=== PATIENT | female | born 1945 | race Caucasian/White ===

== ENCOUNTER → 2018-03-20 | Outpatient (CLI) | payer MEDICARE, OTHER ==
--- NOTE | 2018-03-20 14:42 | BD ---
EXAMINATION TYPE: MG DEXA axial skeleton. DATE OF EXAM: 03/20/2018 CLINICAL HISTORY: M85.9 Disorder of bone Height: 61 Weight: 148 FRAX RISK QUESTIONS: Alcohol (3 or more units per day): no Family History (Parent hip fracture): no Glucocorticoids (More than 3mos): no (Ex: prednisone, prednisolone, methylprednisolone, dexamethasone, and hydrocortisone). History of Fracture in Adulthood: no Secondary Osteoporosis: 1. Type 1 Diabetes: no 2. Hyperthyroidism: no 3. Menopause before 45: no 4. Malnutrition: no 5. Chronic liver disease: no Rheumatoid Arthritis: no Current Tobacco Use: no RISK FACTORS HISTORY OF: Surgery to Hip(right): yes When: replacement about 3 years ago Family History of Osteoporosis: sister is on osteoporosis meds Active: yes Diet low in dairy products/other sources of calcium: no Postmenopausal woman: yes Take estrogen and/or progesterone medications: not now How long: started age [age]..stopped about 2-3 years Lost more than 2 inches in height since high school: no Frequent falls: no Poor Health: no Hyperparathyroidism: no Adrenal Insufficiency: no MEDICATIONS: Prednisone or other steroids: no Thyroid Medications: yes Which medication: generic brand How Long: about 10 years Osteoporosis Medications: no Additional Medications: blood pressure meds; fish oil prescription Additional History: right hip replaced, hypothyroid EXAM MEASUREMENTS: Bone mineral densitometry was performed using the [employer] System. Bone mineral density as measured about the Lumbar spine is: ----- L1-L4(G/cm2): 1.400 T Score Values are as follows: ----- L2: 1.3 ----- L3: 2.0 ----- L4: 3.3 ----- L1-L4: 1.8 Bone mineral density has: Decreased -3.8% since study of: 01/01/2015 Bone mineral density about the R hip NOT measured due to hip replacement sice last bone density scan Bone mineral density about the L hip (g/cm2): 0.903 T Score values are as follows: -----L Neck: -1.0 -----L Total: 0.3 Bone mineral density has: Decreased -3.1% since study of: 01/01/2015 IMPRESSION: No evidence for osteoporosis or osteopenia. NOTE: T-SCORE=SD OF THE YOUNG ADULT MEAN.
--- NOTE | 2018-03-21 08:38 | MM ---
Reason for exam: screening (asymptomatic). Last mammogram was performed 2 years and 2 months ago. History: Patient is postmenopausal. Benign MG stereo VAD BX RT of the right breast, September 30, 2014. Took estrogen for 19 years beginning at age 50. Physical Findings: A clinical breast exam by your physician is recommended on an annual basis and results should be correlated with mammographic findings. MG Screening Mammo w CAD Bilateral CC and MLO view(s) were taken. Prior study comparison: January 22, 2016, bilateral MG 3d diag mammo w/cad RADHA. September 24, 2014, right breast MG work up mamm w CAD RT. There are scattered fibroglandular densities. Benign calcifications bilaterally. Previous mammotome biopsy in the right breast. No significant changes when compared with prior studies. ASSESSMENT: Benign, BI-RAD 2 RECOMMENDATION: Routine screening mammogram of both breasts in 1 year.
== END | disposition home or self-care (01) ==
LOC: RADMAMWWP 12:36
PROVIDERS: ATTEND Internal Medicine
DX: Z12.31 Encounter for screening mammogram for malignant neoplasm of breast (principal); M85.9 Disorder of bone density and structure, unspecified
CPT/HCPCS: 77067; 77080

== ENCOUNTER → 2019-12-26 | Outpatient (CLI) | payer MEDICARE, OTHER ==
--- NOTE | 2019-12-26 11:34 | US ---
EXAMINATION TYPE: US liver DATE OF EXAM: 12/26/2019 COMPARISON: NONE CLINICAL HISTORY: R94.5 ABN LIVER FUNCTION STUDIES. Abnormal liver function test. EXAM MEASUREMENTS: Liver Length: 15.9 cm Gallbladder Wall: .3 cm CBD: .4 cm Right Kidney: 9.7 x 4.3 x 4.5 cm Pancreas: wnl Liver: There is increased echogenicity of the hepatic parenchyma with diminished visualization of th e portal triads most commonly relating to hepatic steatosis and limiting evaluation for underlying he patic masses. Gallbladder: wnl Evidence for sonographic Holt's sign: No CBD: wnl Right Kidney: wnl IMPRESSION: Sonographic findings most commonly related to hepatic steatosis. Correlate with liver fun ction test results.
--- NOTE | 2019-12-27 13:42 | MM ---
Reason for exam: screening (asymptomatic). Last mammogram was performed 1 year and 9 months ago. History: Patient is postmenopausal. Benign MG stereo VAD BX RT of the right breast, September 30, 2014. Took estrogen for 19 years beginning at age 50. Physical Findings: A clinical breast exam by your physician is recommended on an annual basis and results should be correlated with mammographic findings. MG 3D Screening Mammo W/Cad Bilateral CC and MLO view(s) were taken. Prior study comparison: March 20, 2018, bilateral MG screening mammo w CAD. January 22, 2016, bilateral MG 3d diag mammo w/cad RADHA. There are scattered fibroglandular densities. Benign appearing bilateral calcifications. No suspicious abnormality. Right biopsy marker noted. No significant changes when compared with prior studies. ASSESSMENT: Benign, BI-RAD 2 RECOMMENDATION: Routine screening mammogram of both breasts in 1 year.
== END | disposition home or self-care (01) ==
LOC: RADUSWWP 09:56
PROVIDERS: ATTEND Internal Medicine
DX: Z12.31 Encounter for screening mammogram for malignant neoplasm of breast (principal); K76.0 Fatty (change of) liver, not elsewhere classified; R94.5 Abnormal results of liver function studies
CPT/HCPCS: 76705; 77063; 77067

== ENCOUNTER 2020-03-14 17:37 | Emergency (ER) | payer MEDICARE, OTHER ==
[2020-03-14 17:43] VITALS: BP 180/81; PULSE 63; RESP 18; TEMP 98.5
[2020-03-14] MEDS ORDERED: traMADol 50 MG STARTER PACK 3 TAB BTL PO STA (17:58)
--- NOTE | 2020-03-14 18:21 | XR ---
EXAMINATION TYPE: XR Hip RT and AP Pelvis DATE OF EXAM: 03/14/2020 COMPARISON: 07/01/2015 HISTORY: Hip pain TECHNIQUE: 3 views FINDINGS: Pelvic ring is intact. There is right hip prosthesis. Components appear in anatomic positio n. Sacroiliac joints appear intact. IMPRESSION: No acute abnormality of the pelvis and right hip.
--- NOTE | 2020-03-14 18:26 | XR ---
EXAMINATION TYPE: XR lumbar spine 2 or 3V DATE OF EXAM: 03/14/2020 COMPARISON: NONE HISTORY: Pain TECHNIQUE: 3 views FINDINGS: There is 5 mm anterior subluxation of L5 in relation S1. There is disc space narrowing thro ughout the lumbar spine with relative sparing of L5-S1 disc space. Posterior elements appear intact. There is no compression fracture. Abdominal aorta is atheromatous. There is vascular calcification. S acroiliac joints appear intact. IMPRESSION: Multilevel spondylotic changes. No fracture. Mild degenerative first-degree L5-S1 spondyl olisthesis.
--- NOTE | 2020-03-14 18:43 | ED ---
Fall HPI - General Source: patient Mode of arrival: wheelchair <Cristina Peters - Last Filed: 03/14/20 18:59> <FredyJaclyn knowles Frederic - Last Filed: 03/16/20 23:50> - General Chief Complaint: Fall Stated Complaint: fall Time Seen by Provider: 03/14/20 17:46 - History of Present Illness Initial Comments: 74-year-old female presents today for chief complaint of fall. Patient states she was walking in the [place] with her grandson around 4PM when she tripped falling onto the right side of her back. Patient states she has been able to walk, no weakness of the LE, no decrease in strength, patient denies loss of bowel bladder control urinary retention as a sensation deficits of the lower extremity patient denies any flank pain chest pain shortness of breath she denied any dizziness injury to head or neck. Patient states her pain is only the right side of her back. Patient denies any anticoagulation therapy. Patient denies loss of conscious. Patient states it is to the right of the spine not midline. Patient denies fevers, cancer, osteoporosis chronic steroid use or known previous compression fractures. Patient states she has had a right hip replacement in the past. Upon arrival patient is ambulatory weightbearing in the room. Appears well. (Cristina Peters) - Related Data Home Medications Medication Instructions Recorded Confirmed Calcium Acetate [PhosLo] 667 mg PO TID 06/02/14 03/02/15 Celecoxib [CeleBREX] 200 mg PO DAILY 06/02/14 03/02/15 Escitalopram [Lexapro] 10 mg PO DAILY 06/02/14 03/02/15 Estrogens, Conjugated [Premarin] 0.3 mg PO DAILY 06/02/14 03/02/15 Levothyroxine Sodium [Synthroid] 75 mcg PO DAILY 06/02/14 03/02/15 Multivitamins, Thera [Multivitamin] 1 each PO DAILY@1200 06/02/14 03/02/15 [place]-3 Acid Ethyl Esters [Lovaza] 2 gm PO BID 06/02/14 03/02/15 Vit A,C & E/Lutein/Minerals 1 each PO DAILY 06/02/14 03/02/15 [Ocuvite Tablet] Previous Rx's Medication Instructions Recorded Cyclobenzaprine [Flexeril] 10 mg PO TID PRN 7 Days #21 tab 03/14/20 Allergies Allergy/AdvReac Type Severity Reaction Status Date / Time Penicillins Allergy Unknown Verified 03/14/20 17:43 Review of Systems ROS Other: All systems not noted in ROS Statement are negative. <Cristina Peters - Last Filed: 03/14/20 18:59> ROS Other: All systems not noted in ROS Statement are negative. <Jaclyn Deshpande Frederic - Last Filed: 03/16/20 23:50> ROS Statement: Those systems with pertinent positive or pertinent negative responses have been documented in the HPI. Past Medical History Past Medical History: Hyperlipidemia, Hypertension, Osteoarthritis (OA), Thyroid Disorder History of Any Multi-Drug Resistant Organisms: None Reported Past Surgical History: Appendectomy, Hysterectomy, Joint Replacement Additional Past Surgical History / Comment(s): rectocele, rt hip Past Psychological History: Depression Smoking Status: Never smoker Past Alcohol Use History: None Reported Past Drug Use History: None Reported <Cristina Peters Yanira - Last Filed: 03/14/20 18:59> General Exam Limitations: no limitations <Cristina Peters - Last Filed: 03/14/20 18:59> - General Exam Comments Initial Comments: General: The patient is awake and alert, in no distress, and does not appear acutely ill. Eye: Pupils are equal, round and reactive to light, extra-ocular movements are intact. No nystagmus. There is normal conjunctiva bilaterally. No signs of icterus. Ears, nose, mouth and throat: There are moist mucous membranes and no oral lesions. No raccoon no mello sign. Neck: The neck is supple, there is no tenderness or JVD. No mildine tenderness of the cervical spine. Cardiovascular: There is a regular rate and rhythm. No murmur, rub or gallop is appreciated. Respiratory: Lungs are clear to auscultation, respirations are non-labored, breath sounds are equal. No wheezes, stridor, rales, or rhonchi. Musculoskeletal: No midline tenderness to palpation of thoracic or lumbar spine. No skin changes. No hip or buttock skin changes, no bruising. No flank pain. Normal ROM, no tenderness. Strength 5/5 of the hips, knees and ankles b/l. Sensation intact of the LE b/l including the saddle region. Radial and DP pulses equal bilaterally 2+. Neurological: A&O x 3. CN II-XII intact grossly, There are no obvious motor or sensory deficits. Coordination appears grossly intact. Speech is normal. Skin: Skin is warm and dry and no rashes or lesions are noted. Psychiatric: Cooperative, appropriate mood & affect, normal judgment. (Cristina Peters) Course Vital Signs 03/14/20 17:40 Temperature 98.5 F Pulse Rate 63 Respiratory 18 Rate Blood Pressure 180/81 O2 Sat by Pulse 98 Oximetry Medical Decision Making <Cristina Peters - Last Filed: 03/14/20 18:59> <Jaclyn Deshpande - Last Filed: 03/16/20 23:50> - Medical Decision Making 74-year-old female presenting today for chief complaint of right hip pain/low back pain after fall. No skin changes. No fracture on plain films. Patient is ambulatory and neurovascularly intact. Patient is agreeable to discharge with PCP f/u if symptoms persistent i recommended repeat imaging studies or further evaluation such as CT. Patient agreeable to symptomatic treatment and discharge. Dr. Deshpande agreeable to care plan. (Cristina Peters) I was available for consultation in the emergency department. The history and physical exam were done by the midlevel provider. I was consulted for this patients care. I reviewed the case with the midlevel provider and based on their presentation of the patient, I agree with the assessment, medical decision making and plan of care as documented. Chart was dictated using [employer] dictation software. Attempts were made to correct any dictation errors however some typographical errors may persist. Patient was seen during a national state of emergency due to the Covid-19 pandemic. (Jaclyn Deshpande) Disposition Is patient prescribed a controlled substance at d/c from ED?: No Time of Disposition: 18:43 <Cristina Peters - Last Filed: 03/14/20 18:59> <Jaclyn Deshpande - Last Filed: 03/16/20 23:50> Clinical Impression: Fall, Low back pain, Right hip pain Disposition: HOME SELF-CARE Condition: Good Instructions (If sedation given, give patient instructions): Acute Low Back Pain (ED), Fall Prevention (ED) Additional Instructions: Please use medication as discussed. Please follow-up with family doctor in the next 2 days. Please return to emergency room if the symptoms increase or worsen or for any other concerns. Prescriptions: Cyclobenzaprine [Flexeril] 10 mg PO TID PRN 7 Days #21 tab PRN Reason: Muscle Spasm Referrals: Dmitry Campoverde MD [Primary Care Provider] - 1-2 days
[2020-03-14] MEDS ORDERED: CYCLOBENZAPRINE 10MG STARTER 3 TAB BTL PO STA (18:54)
== END 2020-03-14 19:04 | disposition home or self-care (01) ==
LOC: EC 17:37
DX: M54.5 Low back pain (principal); M25.551 Pain in right hip; I10 Essential (primary) hypertension; F32.9 Major depressive disorder, single episode, unspecified; Z79.890 Hormone replacement therapy; Z79.899 Other long term (current) drug therapy; Z88.0 Allergy status to penicillin; Z96.641 Presence of right artificial hip joint; W01.0XXA Fall on same level from slipping, tripping and stumbling without subsequent striking against object, initial encounter; Y93.01 Activity, walking, marching and hiking
CPT/HCPCS: 72100; 73502; 99283

== ENCOUNTER → 2021-03-12 | Outpatient (CLI) | payer MEDICARE | END | disposition home or self-care (01) | LOC: LABWHC1 11:55 | PROVIDERS: ATTEND Student in an Organized Health Care Education/Training Program | DX: Z20.822 Contact with and (suspected) exposure to COVID-19 (principal) | CPT/HCPCS: U0003; C9803; U0005 ==

== ENCOUNTER 2021-03-19 08:56 | Day surgery (SDC) | payer MEDICARE, OTHER ==
[2021-03-17 12:25] VITALS: BMI 26.5
[2021-03-19] MEDS: LACTATED RINGERS 1,000 ML IV SCH ×2 (09:34→09:44)
[2021-03-19] MEDS ORDERED: LIDOCAINE 1% (10MG/ML) FOR IV START INTRADERMA ONE (09:34)
[2021-03-19] MEDS ORDERED: PROPOFOL 10 MG/ML 20 ML VIAL IV ONE (09:49)
[2021-03-19 09:52] VITALS: TEMP 97.6
--- NOTE | 2021-03-19 10:06 | P.OP ---
Date of Procedure: 03/19/21 Preoperative Diagnosis: Colonosocopy Postoperative Diagnosis: Diverticulosis Procedure(s) Performed: Colonoscopy Anesthesia: MAC Surgeon: Khari James Estimated Blood Loss (ml): 0 Condition: stable Disposition: PACU Description of Procedure: Patient is brought to the Endo suite placed left lateral decubitus position underwent sedation per department of anesthesia timeout performed correct patient correct procedure correct site was verified rectal exam was performed no gross abnormalities are noted scope was passed from the rectum to the cecum with ease slowly withdrawn being sure to visualize all sprague of the colon on the way out there were some sigmoid diverticuli noted no other gross abnormalities noted patient artery procedure well no apparent complications. No need for repeat screening colonoscopy.
[2021-03-19 10:08] VITALS: RESP 16
[2021-03-19 10:25] VITALS: BP 113/81; PULSE 59
== END 2021-03-19 10:57 | disposition home or self-care (01) ==
LOC: ORWHC2ENDO 08:56
PROVIDERS: ATTEND Student in an Organized Health Care Education/Training Program
DX: Z12.11 Encounter for screening for malignant neoplasm of colon (principal); K57.30 Diverticulosis of large intestine without perforation or abscess without bleeding; M19.90 Unspecified osteoarthritis, unspecified site; R73.03 Prediabetes; F32.9 Major depressive disorder, single episode, unspecified; I10 Essential (primary) hypertension; E78.00 Pure hypercholesterolemia, unspecified; E03.9 Hypothyroidism, unspecified; G47.33 Obstructive sleep apnea (adult) (pediatric); Z80.8 Family history of malignant neoplasm of other organs or systems; Z83.3 Family history of diabetes mellitus; Z79.899 Other long term (current) drug therapy; Z79.890 Hormone replacement therapy; Z88.5 Allergy status to narcotic agent; Z88.0 Allergy status to penicillin; Z99.89 Dependence on other enabling machines and devices
CPT/HCPCS: J2704; G0121

== ENCOUNTER → 2021-05-13 | Outpatient (CLI) | payer MEDICARE, OTHER ==
--- NOTE | 2021-05-14 07:35 | XR ---
EXAMINATION TYPE: XR KUB DATE OF EXAM: 05/13/2021 11:54 AM CLINICAL HISTORY: Urinary frequency TECHNIQUE: Single supine KUB image of the abdomen is obtained. COMPARISON: None. FINDINGS: Scattered gas is seen in non-distended small bowel loops. Gas and fecal material is seen in non-distended colon. There is is a 3 mm punctate density identified in the region of the left renal hilum. Right hip prosthesis is incompletely included. IMPRESSION: Overall nonobstructive bowel gas pattern. Possible left nephrolithiasis.
== END | disposition home or self-care (01) ==
LOC: RADXRMAIN 11:20
PROVIDERS: ATTEND Internal Medicine
DX: R35.0 Frequency of micturition (principal)
CPT/HCPCS: 74018

== ENCOUNTER 2022-05-26 10:10 | Emergency (ER) | payer MEDICARE, OTHER ==
[2022-05-26 10:18] VITALS: PULSE 78; TEMP 98.2
--- NOTE | 2022-05-26 11:29 | XR ---
EXAMINATION TYPE: XR chest 2V DATE OF EXAM: 05/26/2022 COMPARISON: 06/02/2014 HISTORY: Shortness of breath TECHNIQUE: Frontal and lateral views of the chest are obtained. FINDINGS: Scattered senescent parenchymal changes noted. Hyperinflation compatible with COPD. No evidence for infiltrate. No evidence for atelectasis. Heart size is stable. Mediastinal structures are stable and grossly unremarkable. No evidence for hilar prominence. Degenerative changes dorsal spine. IMPRESSION: 1. No evidence for acute pulmonary disease.
[2022-05-26 13:39] VITALS: RESP 16
[2022-05-26] MEDS ORDERED: dexAMETHasone 4 MG TAB PO STA (14:02)
--- NOTE | 2022-05-26 14:06 | ED ---
General Adult HPI - General Chief complaint: Upper Respiratory Infection Stated complaint: Cough/weakness Time Seen by Provider: 05/26/22 13:55 Source: patient Mode of arrival: ambulatory Limitations: no limitations - History of Present Illness Initial comments: Dictation was produced using [employer] dictation software. please excuse any grammatical, word or spelling errors. Chief Complaint: 76-year-old female redirected from the urgent care for concerns of pneumonia History of Present Illness: Patient is a 76-year-old female presents to the emergency department for concerns of pneumonia. She was seen at the [place] urgent care for a cough that she's had for a week. Patient states that she had an x-ray done there and was told that she had an equivocal x-ray is suspicious for pneumonia. She was told to come to the emergency department. Patient denies any fever or constitutional symptoms. No chest pain. States her cough is not productive. Denies any obvious sick exposures. The ROS documented in this emergency department record has been reviewed and confirmed by me. Those systems with pertinent positive or negative responses have been documented in the HPI. All other systems are other negative and/or noncontributory. PHYSICAL EXAM: General Impression: Alert and oriented x3, not in acute distress HEENT: Normocephalic atraumatic, extra-ocular movements intact, pupils equal and reactive to light bilaterally, mucous membranes moist. Cardiovascular: Heart regular rate and rhythm Chest: Able to complete full sentences, no retractions, no tachypnea, sit auscultation bilaterally Abdomen: abdomen soft, non-tender, non-distended, no organomegaly Musculoskeletal: Pulses present and equal in all extremities, no peripheral edema Motor: no focal deficits noted Neurological: CN II-XII grossly intact, no focal motor or sensory deficits noted Skin: Intact with no visualized rashes Psych: Normal affect and mood ED course: 76-year-old female presents to the emergency department for chief complaint of cough. She was initially seen in urgent care where she was told by the care provider there to come to the emergency room for further evaluation. Vital signs upon arrival are within acceptable limits. Chest x-ray here shows no acute processes. Patient's well-appearing at the bedside. Patient positive for COVID-19. Patient states her symptoms have been exactly 6 days. Patient is agreeable for monoclonal antibody infusion. She is given 10 mg of Decadron. Patient not hypoxic. Patient observed in emergency department after administration of monoclonal antibodies in stable medical condition. Patient discharged. - Related Data Home Medications Medication Instructions Recorded Confirmed Escitalopram [Lexapro] 10 mg PO DAILY 06/02/14 05/26/22 Multivitamins, Thera [Multivitamin] 1 each PO DAILY@1200 06/02/14 05/26/22 [place]-3 Acid Ethyl Esters [Lovaza] 2 gm PO BID 06/02/14 05/26/22 Ascorbic Acid [Vitamin C] 1,000 mg PO DAILY 03/17/21 05/26/22 Calcium Carbonate [Calcium] 600 mg PO DAILY 05/26/22 05/26/22 Fexofenadine HCl [Gwen Allergy] 180 mg PO DAILY 05/26/22 05/26/22 Levothyroxine Sodium [Synthroid] 75 mcg PO DAILY 05/26/22 05/26/22 Vitamin B Complex 1 cap PO DAILY 05/26/22 05/26/22 Allergies Allergy/AdvReac Type Severity Reaction Status Date / Time hydrocodone Allergy Rash/Hives Verified 05/26/22 15:00 Penicillins Allergy Unknown Verified 05/26/22 15:00 Childhood Review of Systems ROS Statement: Those systems with pertinent positive or pertinent negative responses have been documented in the HPI. ROS Other: All systems not noted in ROS Statement are negative. Past Medical History Past Medical History: Hyperlipidemia, Hypertension, Osteoarthritis (OA), Thyroid Disorder History of Any Multi-Drug Resistant Organisms: None Reported Past Surgical History: Appendectomy, Hysterectomy, Joint Replacement Additional Past Surgical History / Comment(s): rectocele, rt hip Past Psychological History: Depression Past Alcohol Use History: None Reported Past Drug Use History: None Reported General Exam Limitations: no limitations Course Vital Signs 05/26/22 05/26/22 10:14 13:35 Temperature 98.2 F Pulse Rate 78 Respiratory 18 16 Rate Blood Pressure 147/82 O2 Sat by Pulse 97 Oximetry Medical Decision Making - Lab Data Lab Results 05/26/22 05/26/22 Range/Units 13:40 13:40 Coronavirus (PCR) Detected A (Not Detectd) Influenza Type A RNA Not Detected (Not Detectd) Influenza Type B (PCR) Not Detected (Not Detectd) Disposition Clinical Impression: Coronavirus infection Disposition: HOME SELF-CARE Condition: Fair Instructions (If sedation given, give patient instructions): Coronavirus Disease 2019 (COVID-19) Is patient prescribed a controlled substance at d/c from ED?: No Referrals: Dmitry Campoverde MD [Primary Care Provider] - 1-2 days Time of Disposition: 15:35
[2022-05-26] MEDS ORDERED: SODIUM CHLORIDE 0.9% 500 ML 500 ML IV ONE (14:37)
[2022-05-26] MEDS ORDERED: BEBTELOVIMAB (EUA) 175 MG/2 ML VIAL IV ONE (15:30)
[2022-05-26 16:59] VITALS: BP 114/78
== END 2022-05-26 16:59 | disposition home or self-care (01) ==
LOC: EC 10:10
DX: U07.1 COVID-19 (principal); I10 Essential (primary) hypertension; E78.5 Hyperlipidemia, unspecified; E07.9 Disorder of thyroid, unspecified; M19.90 Unspecified osteoarthritis, unspecified site; Z79.899 Other long term (current) drug therapy; Z79.890 Hormone replacement therapy; Z88.5 Allergy status to narcotic agent; Z88.0 Allergy status to penicillin
CPT/HCPCS: 87502; 87635; 71046; 99285; 96360; J8540; Q0222

== ENCOUNTER → 2023-07-06 | Outpatient (CLI) | payer MEDICARE, OTHER ==
--- NOTE | 2023-07-06 10:41 | NM ---
EXAMINATION TYPE: NM stress cardiolite complete DATE OF EXAM: 07/06/2023 COMPARISON: NONE HISTORY: Chest pain TECHNIQUE: After the intravenous administration of 10 mCi Tc 99m Sestamibi - Cardiolite resting SPEC T images acquired 45 minutes post injection. At peak stress 25.3 mCi Tc 99m Sestamibi - Stress images obtained 10 minutes post injection The patient was stressed on a treadmill reaching 91% of predicted maximum heart rate. FINDINGS: No fixed defects are evident. No reversible stress defects on SPECT images Dyskinesia is at the cardiac apex. Wall motion otherwise appears normal. Ejection fraction is calculated to be 67 %. IMPRESSION: 1. No fixed or reversible perfusion defects evident. 2. Dyskinesia at the cardiac apex. Wall motion is otherwise normal with a normal ejection fraction.
--- NOTE | 2023-07-06 12:46 | CA ---
Exercise Stress Test Report Name: Enid Khoury Exam Date: 07/06/2023 09:44 Exam Location: [facility] Ht (in): 61 Wt (lb): 140 BSA: 1.62 Ordering Phys: Dmitry Campoverde MD Referring Phys: Nirali,, Technologist: Giles Diaz Age: 77 Gender: F : 1945 Procedure CPT: Indications: I25.10 ICD-10 Codes: Patient History: DIABETES, ELEVATED CHOLESTEROL LEVELS Medications: LEXAPRO,,,,,, ZETEA,,,,,, VIT D3,,,,,, L- THYRONINE,,,,,, LOVAZA,,,,, Meds past 24 hrs: Pretest Chest Pain: STRESS TEST Ricardo Protocol Exercise Duration (min:sec): 06:[address] Depressions (mm): Angina Score: Brown Score: Resting HR (bpm): 61 Peak HR (bpm): 133 Resting BP (mmHg): 151 / 83 Peak BP (mmHg): 201 / 84 MPHR: 143 Target HR: 122 % MPHR: 93 METS: 7.1 Total Dose: Peak Dose: Atropine: Double Product: 22446 BP Response: Stress Termination: TARGET HR REACHED/MAX EXERTION Stress Symptoms: NO SYMPTOMS Stress Summary: ECG ANALYSIS Resting ECG: Normal sinus rhythm, heart rate 64 beats a minute Stress ECG: No evidence of ischemia by ST segment analysis CONCLUSIONS Good exercise tolerance for age achieving 7 METS Normal hemodynamic and heart response to exercise Normal treadmill stress test Dr Sameer Mata (Electronically Signed) Final Date: 06 July 2023 12:45
== END | disposition home or self-care (01) ==
LOC: RADNMMAIN 07:46
PROVIDERS: ATTEND Internal Medicine
DX: I25.10 Atherosclerotic heart disease of native coronary artery without angina pectoris (principal); G24.9 Dystonia, unspecified
CPT/HCPCS: 93017; 78452; A9500

== ENCOUNTER → 2023-07-19 | Outpatient (CLI) | payer MEDICARE, OTHER ==
--- NOTE | 2023-07-20 18:41 | CA ---
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 Mylene Moscoso [facility] Procedure CPT: Indications: R93.1 ABNORMAL FINDINGS ON DX IMAGING OF HEART AND Cardiac Hx: Technical Quality: Fair Contrast 1: Total Dose (mL): Contrast 2: Total Dose (mL): MEASUREMENTS (Male / Female) Normal Values 2D ECHO LV Diastolic Diameter PLAX 4.4 cm 4.2 - 5.9 / 3.9 - 5.3 cm LV Systolic Diameter PLAX 2.6 cm IVS Diastolic Thickness 0.8 cm 0.6 - 1.0 / 0.6 - 0.9 cm LVPW Diastolic Thickness 0.8 cm 0.6 - 1.0 / 0.6 - 0.9 cm LV Relative Wall Thickness 0.4 LVOT Diameter 2.0 cm Ascending Aorta Diameter 2.8 cm M-MODE Aortic Root Diameter MM 2.2 cm LA Systolic Diameter MM 3.6 cm LA Ao Ratio MM 1.6 AV Cusp Separation MM 1.8 cm DOPPLER AV Peak Velocity 125.0 cm/s AV Peak Gradient 6.2 mmHg AV Mean Velocity 95.6 cm/s AV Mean Gradient 3.9 mmHg AV Velocity Time Integral 26.9 cm LVOT Peak Velocity 126.5 cm/s LVOT Peak Gradient 6.4 mmHg LVOT Velocity Time Integral 24.8 cm LVOT Stroke Volume 75.0 cm??? LVOT Stroke Volume Index 45.7 ml/m??? LVOT Cardiac Index 2455.9 cm???/min???m??? AV Area Cont Eq vti 2.8 cm??? AV Area Cont Eq pk 3.1 cm??? Mitral E Point Velocity 84.9 cm/s Mitral A Point Velocity 104.7 cm/s Mitral E to A Ratio 0.8 MV Deceleration Time 207.9 ms LV E' Lateral Velocity 8.2 cm/s Mitral E to LV E' Lateral Ratio 10.3 LV E' Septal Velocity 7.5 cm/s Mitral E to LV E' Septal Ratio 11.3 TR Peak Velocity 199.1 cm/s TR Peak Gradient 15.9 mmHg Right Atrial Pressure 3.0 mmHg Pulmonary Artery Systolic Pressu 18.9 mmHg Right Ventricular Systolic Press 18.9 mmHg FINDINGS Left Ventricle Left ventricular wall thickness normal. Left ventricular cavity size normal. Normal left ventricular systolic function with no obvious regional wall motion abnormalities. Left ventricular ejection fraction is estimated at 55-60%. Right Ventricle Normal right ventricular size. Right Atrium Normal right atrial size. Left Atrium Normal left atrial size. Mitral Valve Structurally normal mitral valve. Mild thickening/calcification of the posterior mitral valve leaflet. Trace mitral regurgitation. Aortic Valve Trileaflet aortic valve. No aortic valve stenosis or regurgitation. Tricuspid Valve Structurally normal tricuspid valve. Trace tricuspid regurgitation. Pulmonic Valve Pulmonic valve not well visualized. Trace pulmonic regurgitation. Pericardium No pericardial effusion. Aorta Normal size aortic root and proximal ascending aorta. CONCLUSIONS Normal LV size and systolic function posterior mitral leaflet and annular calcification Previewed by: Dr. Everardo Dhillon MD (Electronically Signed) Final Date: 20 July 2023 18:40
== END | disposition home or self-care (01) ==
LOC: RADECHMAIN 11:48
PROVIDERS: ATTEND Internal Medicine
DX: R93.1 Abnormal findings on diagnostic imaging of heart and coronary circulation (principal)
CPT/HCPCS: 93306

== ENCOUNTER → 2025-05-07 | Outpatient (CLI) | payer MEDICARE, OTHER ==
[2025-05-07 11:51] LABS: African American GFR (CKD) 83 (>60 ml/min/1.73 sqM); Blood Urea Nitrogen 19 mg/dL (7-17); Non-African American GFR(CKD) 72 (>60 ml/min/1.73 sqM)
--- NOTE | 2025-05-07 13:45 | CT ---
EXAMINATION TYPE: CT abdomen pelvis w con DATE OF EXAM: 05/07/2025 COMPARISON: None CLINICAL INDICATION: Female, 79 years old with history of R10.12 LEFT UPPER QUADRANT PAIN; PHH, LUQ p ain TECHNIQUE: Performed with Oral Contrast and with IV Contrast, patient injected with 100 mL of Isovue 300. CT DLP: [address] CTDI: mGy Automated exposure control for dose reduction was used. FINDINGS: There is a large 10.3 x 11.0 cm heterogeneous ill-defined mass filling the pelvis. There is marked mu ltiple omental masses and omental caking the largest of which is in the lower abdomen measuring 13.9 x 6.5 cm. A second 5.8-4.5 cm omental mass is seen in addition to multiple smaller omental nodules. T here is a small amount of free fluid adjacent to the liver edge. There is mild hydronephrosis of the left kidney likely secondary to the pelvic mass involving the dis nydia left ureter. In the left lung base is a 14 mm subpleural parenchymal nodule. In the right lung base there are 2 no dules one measuring 7.9 cm and another measuring 5.8 mm. There are no masses within the liver and gallbladder is unremarkable and there is no biliary ductal d ilatation. There are 2 hypodense masses in the liver one measuring 16.6 mm and the other measuring approximately 29 mm. There is no mass within the pancreas, spleen or adrenal glands. There are no solid renal masses. The bowel loops are nondilated and there is no evidence of bowel obstruction. There is a right hip pr osthesis. There are no focal osseous lesions. 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 [facility], , 05/07/2025 1:43 PM
== END | disposition home or self-care (01) ==
LOC: RADCTMAIN 11:10
PROVIDERS: ATTEND Internal Medicine
DX: R16.0 Hepatomegaly, not elsewhere classified (principal); N13.30 Unspecified hydronephrosis
CPT/HCPCS: 82565; 84520; 74177; 36415; Q9967

== ENCOUNTER 2025-05-26 11:45 | Emergency (ER) | payer MEDICARE, OTHER ==
[2025-05-26 13:16] LABS: Basophils # (A) 0.04 10*3/uL (0.00-0.10); Basophils % (A) 0.3 %; HCT 38.9 % (37.2-46.3); HGB 12.6 g/dL (12.0-15.0); Lymphocytes # (A) 0.79 10*3/uL (0.90-5.00); Lymphocytes % (A) 5.4 %; MCH 26.7 pg (27.0-32.0); MCHC 32.4 g/dL (32.0-37.0); MCV 82.4 fL (80.0-97.0); Mean Platelet Volume 10.5 fL (9.5-12.2); Monocytes # (A) 1.43 10*3/uL (0.20-1.00); Monocytes % (A) 9.7 %; Neutrophils # (A) 12.36 10*3/uL (1.80-7.70); Neutrophils % (A) 83.8 %; Platelet Count 299 10*3/uL (140-440); RBC 4.72 10*6/uL (4.10-5.20); WBC 14.74 10*3/uL (4.50-10.00)
[2025-05-26 13:38] LABS: ALT 35 U/L (4-34); AST 42 U/L (14-36); African American GFR (CKD) >90 (>60 ml/min/1.73 sqM); Albumin 3.7 g/dL (3.5-5.0); Alkaline Phosphatase 112 U/L (38-126); Anion Gap 10 mmol/L; Blood Urea Nitrogen 17 mg/dL (7-17); Calcium 9.6 mg/dL (8.4-10.2); Carbon Dioxide 27 mmol/L (22-30); Chloride 101 mmol/L (98-107); Glucose 141 mg/dL (74-99); Lipase 53 U/L (23-300); Non-African American GFR(CKD) 83 (>60 ml/min/1.73 sqM); Potassium 4.3 mmol/L (3.5-5.1); Sodium 138 mmol/L (137-145); Total Bilirubin 0.8 mg/dL (0.2-1.3); Total Protein 6.5 g/dL (6.3-8.2)
[2025-05-26 13:46] LABS: Appearance,Urine Cloudy (Clear); Bilirubin,Urine Negative (Negative); Blood,Urine Small (Negative); Color,Urine Yellow; Glucose,Urine (UA) Negative (Negative); Hyaline Casts,Urine 1 /lpf (0-2); Ketones,Urine Negative (Negative); Leukocyte Esterase,Urine Negative (Negative); Mucus,Urine Few /hpf; Nitrite,Urine Negative (Negative); Protein,Urine Trace (Negative); RBC,Urine 17 /hpf (0-5); Specific Gravity,Urine 1.021 (1.001-1.035); Squamous Epithelial Cell,Urine 4 /hpf (0-4); Urobilinogen,Urine <2.0 mg/dL (<2.0); WBC,Urine 2 /hpf (0-5)
[2025-05-26] MEDS: MORPHINE SULFATE 2 MG/ML SYRINGE IVP STA (14:29)
--- NOTE | 2025-05-26 15:23 | ED ---
General Adult HPI - General Source: patient, family, RN notes reviewed, old records reviewed Mode of arrival: wheelchair Limitations: no limitations <Annelise Baugh - Last Filed: 05/26/25 16:20> - General Source: patient, family, RN notes reviewed, old records reviewed Mode of arrival: wheelchair Limitations: no limitations - History of Present Illness -: hour(s) Location: abdomen Radiation: abdomen Severity scale (1-10): 6 Quality: sharp Consistency: intermittent, colicky Improves with: none Worsens with: none Associated Symptoms: loss of appetite, nausea/vomiting, weakness <Panchito Marinelli - Last Filed: 05/26/25 20:49> - General Chief complaint: Abdominal Pain Stated complaint: Right Abd Pain - History of Present Illness Initial comments: 79-year-old female with a 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 States she normally has generalized abdominal pain due to her ongoing maligna ncy, but states when she woke up this morning she felt a different type of pain that was more so sharp on the right side. States the pain is about an 8 out of 10, radiates somewhat to her back as well. States she normally takes ibuprofen and [place] fives at home to help with pain control. Reports she decided to come to the ER due to this pain feeling different than other abdominal pain she has h ad before. Denies any hematuria melena, urgency, frequency, dysuria. Reports she follows with Dr. Mcwilliams normally for her ovarian cancer. (Annelise Baugh) This is a 79-year-old female to the ER for evaluation of multiple complaints abdominal pain with known significant malignancy. Pain is just significantly worse today with severe pain 8 out of 10 pain (Panchito Marinelli) - Related Data Home Medications Medication Instructions Recorded Confirmed Escitalopram [Lexapro] 10 mg PO DAILY 06/02/14 05/26/22 Multivitamins, Thera [Multivitamin] 1 each PO DAILY@1200 06/02/14 05/26/22 Lima-3 Acid Ethyl Esters [Lovaza] 2 gm PO BID 06/02/14 05/26/22 Ascorbic Acid [Vitamin C] 1,000 mg PO DAILY 03/17/21 05/26/22 Calcium Carbonate [Calcium] 600 mg PO DAILY 05/26/22 05/26/22 Fexofenadine HCl [Gwen Allergy] 180 mg PO DAILY 05/26/22 05/26/22 Levothyroxine Sodium [Synthroid] 75 mcg PO DAILY 05/26/22 05/26/22 Vitamin B Complex 1 cap PO DAILY 05/26/22 05/26/22 Previous Rx's Medication Instructions Recorded Azithromycin [Zithromax] 500 mg PO DAILY 5 Days #5 tab 05/26/25 Allergies Allergy/AdvReac Type Severity Reaction Status Date / Time hydrocodone Allergy Rash/Hives Verified 05/26/22 15:00 Penicillins Allergy Unknown Verified 05/26/25 11:56 Childhood Review of Systems ROS Other: All systems not noted in ROS Statement are negative. <Annelise Baugh - Last Filed: 05/26/25 16:20> ROS Other: All systems not noted in ROS Statement are negative. <Panchito Marinelli - Last Filed: 05/26/25 20:49> ROS Statement: Those systems with pertinent positive or pertinent negative responses have been documented in the HPI. Past Medical History Past Medical History: Cancer, Chest Pain / Angina, Hyperlipidemia, Hypertension, Osteoarthritis (OA), Thyroid Disorder Additional Past Medical History / Comment(s): ovarian cancer with METS to liver and lungs History of Any Multi-Drug Resistant Organisms: None Reported Past Surgical History: Appendectomy, Hysterectomy, Joint Replacement Additional Past Surgical History / Comment(s): rectocele, rt hip Past Psychological History: Depression Past Alcohol Use History: None Reported Past Drug Use History: None Reported <Annelise Baugh - Last Filed: 05/26/25 16:20> General Exam Limitations: no limitations <Annelise Baugh - Last Filed: 05/26/25 16:20> General appearance: alert, in no apparent distress Head exam: Present: atraumatic, normocephalic, normal inspection Eye exam: Present: normal appearance, PERRL, EOMI. Absent: scleral icterus, conjunctival injection, periorbital swelling ENT exam: Present: normal exam, mucous membranes moist Neck exam: Present: normal inspection. Absent: tenderness, meningismus, lymphadenopathy Respiratory exam: Present: normal lung sounds bilaterally. Absent: respiratory distress, wheezes, rales, rhonchi, stridor Cardiovascular Exam: Present: regular rate, normal rhythm, normal heart sounds. Absent: systolic murmur, diastolic murmur, rubs, gallop, clicks GI/Abdominal exam: Present: soft, normal bowel sounds. Absent: distended, tenderness, guarding, rebound, rigid Extremities exam: Present: normal inspection, full ROM, normal capillary refill. Absent: tenderness, pedal edema, joint swelling, calf tenderness Back exam: Present: normal inspection Neurological exam: Present: alert, oriented X3, CN II-XII intact Psychiatric exam: Present: normal affect, normal mood Skin exam: Present: warm, dry, intact, normal color. Absent: rash <Panchito Marinelli - Last Filed: 05/26/25 20:49> - General Exam Comments Initial Comments: GENERAL: In mild distress at the time of examination. Pleasant and cooperative. HEENT: Head is atraumatic, normocephalic. Pupils are equal, round, and reactive to light. Sclerae anicteric. Conjunctivae are clear. Mucus membranes of the mouth are moist. Neck is supple. RESPIRATORY: Clear to auscultation. No wheezes, rales, or rhonchi. No use of accessory muscles. Patient maintaining oxygen saturation greater than 92%. No chest wall tenderness is noted on palpation or with deep breathing. CARDIOVASCULAR: Regular rate and rhythm. S1 and S2 noted. No systolic or diastolic murmur auscultated. No JVD noted. No S3 or S4 noted. GASTROINTESTINAL: No distention noted. Abdomen soft and round. Normal active bowel sounds auscultated x 4 quadrants. Mild tenderness to palpation in the right lower quadrant, more so tenderness in the right and left groin as well as the right flank. INTEGUMENTARY: No cyanosis. No jaundice. No rashes noted. No cellulitis noted. EXTREMITIES: 2+ peripheral pulses. No evidence of peripheral edema. No calf tenderness noted. PSYCHIATRIC: Awake, alert, and oriented X 3. Appropriate affect. Intact judgement and insight. (Annelise Baugh) Course <Panchito Marinelli - Last Filed: 05/26/25 20:49> Vital Signs 05/26/25 05/26/25 05/26/25 11:54 17:45 18:41 Temperature 97.8 F 101.4 F H 101.4 F H Pulse Rate 86 91 92 Respiratory 16 18 20 Rate Blood Pressure 118/69 122/61 124/70 O2 Sat by Pulse 92 L 88 L 92 L Oximetry - Reevaluation(s) Reevaluation #1: 05/26/25 20:48 Medical records reviewed (Panchito Marinelli) Reevaluation #2: 05/26/25 20:48 Patient and family's patient of her who are her caregivers do not want patient admitted to the hospital (Panchito Marinelli) Reevaluation #3: 05/26/25 20:48 Patient informed of results questions answered (Panchito Marinelli) Reevaluation #4: Was pt. sent in by a medical professional or institution (, [facility], CABLE STRETCHER AND TESTER, urgent care, hospital, or half-way...) When possible be specific @ -no Did you speak to anyone other than the patient for history (EMS, parent, family, police, friend...)? What history was obtained from this source @ -no Did you review nursing and triage notes (agree or disagree)? Why? @ -agree Are old charts reviewed (outside hosp., previous admission, EMS record, old EKG, old radiological studies, urgent care reports/EKG's, half-way records)? Report findings @ -yes Differential Diagnosis (chest pain, altered mental status, abdominal pain women, abdominal pain men, vaginal bleeding, weakness, fever, dyspnea, syncope, headache, dizziness, GI bleed, back pain, seizure, CVA, palpatations, mental health, musculoskeletal)? @ -prior EKG interpreted by me (3pts min.). @ -yes X-rays interpreted by me (1pt min.). @ -yes negative for acute disease CT interpreted by me (1pt min.). @ -no U/S interpreted by me (1pt. min.). @ -no What testing was considered but not performed or refused? (CT, X-rays, U/S, labs)? Why? @ -none What meds were considered but not given or refused? Why? @ -none Did you discuss the management of the patient with other professionals (professionals i.e. DANICA Jasso, CABLE STRETCHER AND TESTER, lab, RT, psych nurse, social services specialist, salvage grinder, teacher, chief digital media officer, casework manager)? Give summary @ -no Was smoking cessation discussed for >3mins.? @ -no Was critical care preformed (if so, how long)? @ -no Were there social determinants of health that impacted care today? How? (Homelessness, low income, unemployed, alcoholism, drug addiction, transportation, low edu. Level, literacy, decrease access to med. care, shelter, rehab)? @ -none Was there de-escalation of care discussed even if they declined (Discuss DNR or withdrawal of care, Hospice)? DNR status @ -no What co-morbidities impacted this encounter? (DM, HTN, Smoking, COPD, CAD, Cancer, CVA, ARF, Chemo, Hep., AIDS, mental health diagnosis, sleep apnea, morbid obesity)? @ -none Was patient admitted / discharged? Hospital course, mention meds given and route, prescriptions, significant lab abnormalities, going to OR and other pertinent info. @ - Undiagnosed new problem with uncertain prognosis? @ -no Drug Therapy requiring intensive monitoring for toxicity (Heparin, Nitro, Insulin, Cardizem)? @ -no Were any procedures done? @ -no Diagnosis/symptom? @ - Acute, or Chronic, or Acute on Chronic? @ -Acute Uncomplicated (without systemic symptoms) or Complicated (systemic symptoms)? @ -Complicated Side effects of treatment? @ -no Exacerbation, Progression, or Severe Exacerbation? @ -exacerbation Poses a threat to life or bodily function? How? (Chest pain, USA, NV, pneumonia, PE, COPD, DKA, ARF, appy, cholecystitis, CVA, Diverticulitis, Homicidal, Suicidal, threat to staff... and all critical care pts) @ -yes (Panchito Marinelli) Reevaluation #5: Differential Abdominal Pain Women: Appendicitis, Cholecystitis, diverticulosis, ischemic bowel, pancreatitis, hepatitis, UTI, gastroenteritis, AAA, incarcerated hernia, bowel obstruction, constipation, inflammatory bowel, hepatitis, peptic ulcer disease, splenic infarction, perforated viscus, vulvitis, ovarian torsion, PID, kidney stone, placenta abruption, this is not meant to be an all-inclusive list Differential Fever: Pneumonia, viral URI, endocarditis, myocarditis, pericarditis, otitis, sinusitis, peritonsillar Abscess, retropharyngeal Abscess, epiglottitis, peritonitis, appendicitis, [place] cystitis, diverticulitis, hepatitis, colitis, UTI, PID, TOA, pyelonephritis, prostatitis, epididymitis, meningitis, encephalitis, pulmonary embolism, CVA, thyroid storm, pancreatitis, adrenal crisis, cavernous sinus thrombosis, this is not meant to be an all-inclusive list. (Panchito Marinelli) Medical Decision Making - Lab Data Result diagrams: 05/26/25 13:04 05/26/25 13:04 <Annelise Baugh - Last Filed: 05/26/25 16:20> - Lab Data Result diagrams: 05/26/25 13:04 05/26/25 13:04 <Panchito Marinelli - Last Filed: 05/26/25 20:49> - Medical Decision Making Was pt. sent in by a medical professional or institution (, PA, CABLE ST[employer]STER, urgent care, hospital, or half-way...) When possible be specific @ -[No] Did you speak to anyone other than the patient for history (EMS, parent, family, police, friend...)? What history was obtained from this source @ -[No] Did you review nursing and triage notes (agree or disagree)? Why? @ -[I reviewed and agree with nursing and triage notes] Were old charts reviewed (outside hosp., previous admission, EMS record, old EKG, old radiological studies, urgent care reports/EKG's, half-way records)? Report findings @ -[No old charts were reviewed] Differential Diagnosis? @ -Differential Abdominal Pain Women: Appendicitis, Cholecystitis, diverticulosis, ischemic bowel, pancreatitis, hepatitis, UTI, gastroenteritis, AAA, incarcerated hernia, bowel obstruction, constipation, inflammatory bowel, hepatitis, peptic ulcer disease, splenic infarction, perforated viscus, vulvitis, ovarian torsion, PID, kidney stone, placenta abruption, this is not meant to be an all-inclusive list EKG interpreted by me (3pts min.). @ -[As above] X-rays interpreted by me (1pt min.). @ -[None done] CT interpreted by me (1pt min.). @ -Pending U/S interpreted by me (1pt. min.). @ -[None done] What testing was considered but not performed or refused? (CT, X-rays, U/S, labs)? Why? @ -[None] What meds were considered but not given or refused? Why? @ -[None] Did you discuss the management of the patient with other professionals (professionals i.e. , PA, CABLE ST[employer]ER [employer] TESTER, lab, RT, psych nurse, social services specialist, salvage grinder, teacher, chief digital media officer, casework manager)? Give summary @ -[No] Was smoking cessation discussed for >3mins.? @ -[No] Was critical care preformed (if so, how long)? @ -[No] Were there social determinants of health that impacted care today? How? (Homelessness, low income, unemployed, alcoholism, drug addiction, transportation, low edu. Level, literacy, decrease access to med. care, shelter, rehab)? @ -[No] Was there de-escalation of care discussed even if they declined (Discuss DNR or withdrawal of care, Hospice)? DNR status @ -[No] What co-morbidities impacted this encounter? (DM, HTN, Smoking, COPD, CAD, Cancer, CVA, ARF, Chemo, Hep., AIDS, mental health diagnosis, sleep apnea, mo rbid obesity)? @ -[None] Was patient admitted / discharged? Hospital course, mention meds given and route, prescriptions, significant lab abnormalities, going to OR and other pertinent info. @ -This is a 79-year-old female presenting with complaints of right-sided abdominal pain. Reports the pain started this morning when she woke up, states she normally has generalized abdominal pain secondary to her ovarian cancer but the pain this morning felt different. States it was sharp and significantly painful. Patient had CBC and CMP as well as lactate drawn which were relatively within normal limits with the exception of some slightly elevated LFTs which may be accounted for by the patient's ovarian cancer with mets to the liver. CT abdomen pelvis with contrast was ordered.. Patient received pain medication here with significant improvement in her symptoms. I signed this patient out at the end of my shift to Dr. Marinelli. Undiagnosed new problem with uncertain prognosis? @ -[No] Drug Therapy requiring intensive monitoring for toxicity (Heparin, Nitro, Insulin, Cardizem)? @ -[No] Were any procedures done? @ -[No] Diagnosis/symptom? @ -[default] Acute, or Chronic, or Acute on Chronic? @ -[default] Uncomplicated (without systemic symptoms) or Complicated (systemic symptoms)? @ -[default] Side effects of treatment? @ -[No] Exacerbation, Progression, or Severe Exacerbation? @ -[No] Poses a threat to life or bodily function? How? (Chest pain, USA, NV, pneumonia, PE, COPD, DKA, ARF, appy, cholecystitis, CVA, Diverticulitis, Homicidal, Suicidal, threat to staff... and all critical care pts) @ -[No] (Annelise Baugh) 79 female with severe cough and congestion pneumonia fever, patient has severe and extensive cancer in the abdomen but no other acute findings, patient has adequate pain control here is in no acute distress does not want inpatient hospital admission (Panchito Marinelli) - Lab Data Lab Results 05/26/25 05/26/25 05/26/25 Range/Units 13:04 13:04 13:29 WBC 14.74 H (4.50-10.00) 10*3/uL RBC 4.72 (4.10-5.20) 10*6/uL Hgb 12.6 (12.0-15.0) g/dL Hct 38.9 (37.2-46.3) % MCV 82.4 (80.0-97.0) fL MCH 26.7 L (27.0-32.0) pg MCHC 32.4 (32.0-37.0) g/dL Plt Count 299 (140-440) 10*3/uL MPV 10.5 (9.5-12.2) fL Immature Gran % (Auto) 0.8 % Neutrophils % 83.8 % Lymphocytes % 5.4 % Monocytes % 9.7 % Eosinophils % 0.0 % Basophils % 0.3 % Immature Gran # 0.12 H (0.00-0.04) 10*3/uL Neutrophils # 12.36 H (1.80-7.70) 10*3/uL Lymphocytes # 0.79 L (0.90-5.00) 10*3/uL Monocytes # 1.43 H (0.20-1.00) 10*3/uL Eosinophils # 0.00 L (0.04-0.35) 10*3/uL Basophils # 0.04 (0.00-0.10) 10*3/uL Sodium 138 (137-145) mmol/L Potassium 4.3 (3.5-5.1) mmol/L Chloride 101 (98-107) mmol/L Carbon Dioxide 27 (22-30) mmol/L Anion Gap 10 mmol/L BUN 17 (7-17) mg/dL Creatinine 0.70 (0.52-1.04) mg/dL Est GFR (CKD-EPI)AfAm >90 (>60 ml/min/1.73 sqM) Est GFR (CKD-EPI)NonAf 83 (>60 ml/min/1.73 sqM) Glucose 141 H (74-99) mg/dL Plasma Lactic Acid Ky (0.7-2.0) mmol/L Calcium 9.6 (8.4-10.2) mg/dL Total Bilirubin 0.8 (0.2-1.3) mg/dL AST 42 H (14-36) U/L ALT 35 H (4-34) U/L Alkaline Phosphatase 112 (38-126) U/L Total Protein 6.5 (6.3-8.2) g/dL Albumin 3.7 (3.5-5.0) g/dL Lipase 53 (23-300) U/L Urine Color Yellow Urine Appearance Cloudy H (Clear) Urine pH 7.0 (5.0-8.0) Ur Specific Imogene 1.021 (1.001-1.035) Urine Protein Trace H (Negative) Urine Glucose (UA) Negative (Negative) Urine Ketones Negative (Negative) Urine Blood Small H (Negative) Urine Nitrite Negative (Negative) Urine Bilirubin Negative (Negative) Urine Urobilinogen <2.0 (<2.0) mg/dL Ur Leukocyte Esterase Negative (Negative) Urine RBC 17 H (0-5) /hpf Urine WBC 2 (0-5) /hpf Ur Squamous Epith Cells 4 (0-4) /hpf Hyaline Casts 1 (0-2) /lpf Urine Mucus Few H (None) /hpf 05/26/ Range/Units 13:29 WBC (4.50-10.00) 10*3/uL RBC (4.10-5.20) 10*6/uL Hgb (12.0-15.0) g/dL Hct (37.2-46.3) % MCV (80.0-97.0) fL MCH (27.0-32.0) pg MCHC (32.0-37.0) g/dL Plt Count (140-440) 10*3/uL MPV (9.5-12.2) fL Immature Gran % (Auto) % Neutrophils % % Lymphocytes % % Monocytes % % Eosinophils % % Basophils % % Immature Gran # (0.00-0.04) 10*3/uL Neutrophils # (1.80-7.70) 10*3/uL Lymphocytes # (0.90-5.00) 10*3/uL Monocytes # (0.20-1.00) 10*3/uL Eosinophils # (0.04-0.35) 10*3/uL Basophils # (0.00-0.10) 10*3/uL Sodium (137-145) mmol/L Potassium (3.5-5.1) mmol/L Chloride (98-107) mmol/L Carbon Dioxide (22-30) mmol/L Anion Gap mmol/L BUN (7-17) mg/dL Creatinine (0.52-1.04) mg/dL Est GFR (CKD-EPI)AfAm (>60 ml/min/1.73 sqM) Est GFR (CKD-EPI)NonAf (>60 ml/min/1.73 sqM) Glucose (74-99) mg/dL Plasma Lactic Acid Ky 1.2 (0.7-2.0) mmol/L Calcium (8.4-10.2) mg/dL Total Bilirubin (0.2-1.3) mg/dL AST (14-36) U/L ALT (4-34) U/L Alkaline Phosphatase (38-126) U/L Total Protein (6.3-8.2) g/dL Albumin (3.5-5.0) g/dL Lipase (23-300) U/L Urine Color Urine Appearance (Clear) Urine pH (5.0-8.0) Ur Specific Imogene (1.001-1.035) Urine Protein (Negative) Urine Glucose (UA) (Negative) Urine Ketones (Negative) Urine Blood (Negative) Urine Nitrite (Negative) Urine Bilirubin (Negative) Urine Urobilinogen (<2.0) mg/dL Ur Leukocyte Esterase (Negative) Urine RBC (0-5) /hpf Urine WBC (0-5) /hpf Ur Squamous Epith Cells (0-4) /hpf Hyaline Casts (0-2) /lpf Urine Mucus (None) /hpf Disposition <Annelise Baugh - Last Filed: 05/26/25 16:20> Is patient prescribed a controlled substance at d/c from ED?: No Time of Disposition: 18:00 <Panchito Marinelli - Last Filed: 05/26/25 20:49> Clinical Impression: Abdominal pain, Pneumonia, Fever, Cancer associated pain, Hypoxia Disposition: HOME SELF-CARE Condition: Good Instructions (If sedation given, give patient instructions): Community Acquired Pneumonia (ED) Prescriptions: Azithromycin [Zithromax] 500 mg PO DAILY 5 Days #5 tab Referrals: Dmitry Campoverde MD [Primary Care Provider] - 1-2 days
--- NOTE | 2025-05-26 17:44 | CT ---
EXAMINATION TYPE: CT abdomen pelvis w con CT DLP: 767.4 mGycm, Automated exposure control for dose reduction was used. DATE OF EXAM: 05/26/2025 5:04 PM COMPARISON: CT abdomen pelvis 05/07/2025 CLINICAL INDICATION:Female, 79 years old with history of abd pain; rt flank pain TECHNIQUE: Standard CT of the abdomen and pelvis following the administration of 100 cc of Isovue 3 00 IV contrast material. Coronal and sagittal reformats were performed. FINDINGS: LOWER CHEST: Posterior dependent subsegmental atelectasis is noted. Mild cardiomegaly. Mitral annulus calcifications. Redemonstration of medial left lower lobe 6 mm solid pulmonary nodule (series 204, i mage 10). ABDOMEN LIVER: There are couple similar medial inferior right hepatic lobe ill-defined hypodense lesions taniya uring up to 2.0 cm (series 201, image 25). Noncirrhotic morphology. Portal venous system is patent. GALLBLADDER AND BILE DUCTS: Layering increased densities within the lumen consistent with gallstones are present. No biliary ductal dilatation. PANCREAS: Unremarkable. SPLEEN: Unremarkable. ADRENAL GLANDS: Unremarkable. KIDNEYS AND URETERS: No evidence of hydronephrosis. Slightly delayed enhancement of the left kidney c ompared to the right. Stable right renal cysts with largest measuring up to 1.9 cm. These appear simp le. No follow up recommended. Similar mild to moderate left hydroureteronephrosis with poor visualiza tion of the distal ureters secondary to pelvic mass. This may obstruct the distal ureter secondary to invasion or mass effect. Contrast is demonstrated within the right collecting system on the delayed phase. PELVIS BLADDER: Under distended, limiting evaluation. REPRODUCTIVE: Demonstration of a large heterogenous ill-defined enhancing mass within the central pel vis measuring grossly 11.3 x 11.1 cm. Difficult to discern the uterus or ovaries. ABDOMEN & PELVIS STOMACH AND BOWEL: Small hiatal hernia, duodenum is unremarkable. Distal colonic diverticulosis witho ut evidence for acute diverticulitis. No evidence of bowel obstruction. PERITONEUM: No evidence of pneumoperitoneum. Similar small volume ascites throughout the abdomen and pelvis. Redemonstration of large omental mental caking within the lower abdomen measuring grossly 10. 4 x 5.6 cm. Most prominently VASCULATURE: Mild to moderate atherosclerotic calcifications are present throughout the abdominal aor ta and its branches. No evidence of aortic aneurysm. Possible bilateral lower extremity deep venous t hrombosis involving the visualized common femoral veins. MUSCULOSKELETAL: No acute osseous abnormalities. No aggressive osseous lesion. Postsurgical changes f rom right hip arthroplasty. Grade 1 anterolisthesis of L5 on S1 without evidence of pars defects. Mul tilevel degenerative disc disease. LYMPH NODES: Prominent mesenteric lymph nodes. SOFT TISSUE/ABDOMINAL WALL: Unremarkable IMPRESSION: 1. 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 Small volume ascites throughout the abdomen and pelvis redemonstrated. 2. Mild left hydronephrosis likely related to invasion or mass effect on the distal left ureter from the pelvic mass. 3. Possible deep venous thrombosis of the bilateral common femoral veins. Recommend further evaluatio n with ultrasound. [facility], , 05/26/2025 5:41 PM
[2025-05-26 17:49] VITALS: TEMP 101.4
[2025-05-26] MEDS: ACETAMINOPHEN TAB 500 MG TAB PO STA (18:05)
[2025-05-26] MEDS: IBUPROFEN 800 MG TAB PO STA (18:07)
[2025-05-26] MEDS: AZITHROMYCIN 500 MG TAB PO STA (18:08)
[2025-05-26] MEDS: cefTRIAXone IN SWFI 1,000 MG/10 ML SYRINGE IVP STA (18:08)
[2025-05-26 18:42] VITALS: BP 124/70; PULSE 92; RESP 20
== END 2025-05-26 18:42 | disposition home or self-care (01) ==
LOC: EC 11:45
DX: G89.3 Neoplasm related pain (acute) (chronic) (principal); R10.84 Generalized abdominal pain; J18.9 Pneumonia, unspecified organism; R09.02 Hypoxemia; Z88.0 Allergy status to penicillin; Z88.5 Allergy status to narcotic agent
CPT/HCPCS: 36415; 80053; 83605; 83690; 85025; 81001; 74177; 99284; 96374; 96375; J0696; J2270; Q9967